=== PATIENT | female | born 1975 | race African-American/Black ===

== ENCOUNTER 2019-12-20 17:27 | Emergency (ER) | payer OTHER, SELFPAY ==
[2019-12-20] VITALS (9 sets, daily range): BP systolic 133–148; BP diastolic 74–86; PULSE 58–70; RESP 18–26; TEMP 36.7; O2SAT 100
--- NOTE | 2019-12-20 17:40 | DI.RAD.S_ITS ---
PROCEDURE: XR CHEST 1V INDICATIONS: Chest pain TECHNIQUE: One view of the chest was acquired. COMPARISON: None. FINDINGS: Surgical changes and devices: None. Lungs and pleura: Lungs are clear. No pleural effusions or pneumothorax. Mediastinum: Mediastinal contours appear normal. Heart size is normal. Bones and chest wall: No suspicious bony lesions. Overlying soft tissues appear unremarkable. IMPRESSION: Normal portable chest. Dictated by: Thor Robertson M.D. on 12/20/2019 at 17:20 Approved by: Thor Robertson M.D. on 12/20/2019 at 17:20
[2019-12-20 18:19] LABS: Add Manual Diff / Slide Review NO; Basophils Absolute Auto 0 /uL (0-100); Basophils Percent Auto 0.4 % (0-2); Eosinophils Absolute Auto 100 /uL (0-450); Eosinophils Percent Auto 1.6 % (2-4); Hematocrit 36.9 % (36-46); Lymphocytes Absolute Auto 2600 /uL (1100-4500); Lymphocytes Percent Auto 32.3 % (25-40); Mean Corpuscular HGB Conc 35.4 % (30-36); Mean Corpuscular Hemoglobin 32.4 PG (26-34); Mean Corpuscular Volume 91.6 fL (80-100); Monocytes Absolute Auto 400 /uL (0-900); Monocytes Percent Auto 5.5 % (3-14); Neutrophils Absolute Auto 4900 /uL (1500-7000); Neutrophils Percent Auto 60.2 % (50-75); Platelet Count 218 X10^3/uL (150-400); Red Blood Cell Count 4.02 X10^6/uL (4.0-5.2); Red Cell Distribution Width 12.4 % (11.6-14.8); White Blood Cell Count 8.1 X10^3/uL (4.5-11.0)
[2019-12-20 18:24] LABS: D Dimer < 200 ng/mL (<230)
[2019-12-20 18:28] LABS: Alanine Aminotransferase 13 IU/L (<35); Albumin 4.3 g/dL (3.5-5.0); Albumin Globulin Ratio 1.3 (1.0-2.8); Alkaline Phosphatase 89 U/L (38-126); Aspartate Aminotransferase 21 IU/L (14-36); BUN Creatinine Ratio 20.5 (6-22); Bilirubin Total 0.4 mg/dL (0.2-1.3); Blood Urea Nitrogen 16 mg/dL (7-17); Carbon Dioxide 32 mmol/L (22-32); Chloride 97 mmol/L (98-107); Estimated Glomerular Filt Rate > 60.0 mL/min (>60); Globulin 3.2 g/dL (1.7-4.1); Glucose 87 mg/dL (70-100); HEMOLYSIS < 15 (0-50); Lipase 118 U/L (23-300); Magnesium 1.9 mg/dL (1.6-2.3); Potassium 3.1 mmol/L (3.4-5.1); Sodium 136 mmol/L (137-145); Total Protein 7.5 g/dL (6.3-8.2)
--- NOTE | 2019-12-20 18:36 | ED.CHESTPAIN ---
HPI - Chest Pain General Chief Complaint: Chest Pain Stated Complaint: chest pain Time Seen by Provider: 12/20/19 17:40 Source: patient Mode of arrival: Ambulatory Limitations: no limitations History of Present Illness HPI narrative: 44-year-old female with a history of hypertension currently on 2 different medications. Stated that she just started the losartan approximately 4 days ago. Only took her Chlorthalidone today. Here for evaluation of left-sided chest pain and also left arm pain. No shortness of breath. States the pain is not worse with palpation or movement. Not worse with breathing. No nausea or vomiting. She states that the left-sided chest discomfort has been off and on for several days if not weeks help. Her current episode has been going on since earlier in the day. She does not know the exact time that the symptoms started however she does state that is been off and on throughout the day. Has not tried anything for the symptoms in the past. She states that she took her blood pressure earlier in the day and it was elevated. She then remembered that she did not take her blood pressure medicines this morning that is why she is only taken 1 of her 2 blood pressure medicines. Related Data Home Medications Medication Instructions Recorded Confirmed butalbital-acetaminophen 2 tab PO Q8HR PRN 12/20/19 12/20/19 chlorthalidone 25 mg PO QAM 12/20/19 12/20/19 losartan 50 mg PO QAM 12/20/19 12/20/19 multivitamin 1 tab PO QAM 12/20/19 12/20/19 omeprazole 20 mg PO QAM 12/20/19 12/20/19 Allergies Allergy/AdvReac Type Severity Reaction Status Date / Time No Known Drug Allergies Allergy Verified 12/20/19 17:37 Review of Systems Constitutional Constitutional: Denies fever(s) and Reports headache(s) ENT Ears, Nose, Mouth, and Throat: Reports headache(s) Cardiovascular Cardiovascular: Reports chest pain, Denies pedal edema, Denies lightheadedness, Denies dyspnea and Denies orthopnea Respiratory Respiratory: Denies dyspnea Gastrointestinal Gastrointestinal: Denies abdominal pain, Denies change in bowel habits, Denies nausea and Denies vomiting Genitourinary Genitourinary: Denies dysuria Genitourinary: Denies dysuria Musculoskeletal Musculoskeletal: Denies arthralgias and Denies myalgias Integumentary/Breasts Skin/Breast: Denies rash Neurologic Neurologic: Denies behavioral changes and Reports headache(s) Psychiatric Psychiatric: Denies behavioral changes Hematologic/Lymphatic Hematologic/Lymphatic: Denies easy bleeding and Denies easy bruising Allergic/Immunologic Allergic/Immunologic: Denies urticaria Patient History Medical History GERD (gastroesophageal reflux disease) (Acute) Hypertension (Acute) Migraine (Acute) Social History Smoking Status: Never smoker Smoking Status: Never smoker alcohol intake frequency: 0-2 drinks per day Substance Use Type: marijuana Exam Initial Vital Signs Initial Vital Signs: Vital Signs Temperature 98.1 F 12/20/19 17:34 Pulse Rate 70 12/20/19 17:34 Respiratory Rate 19 12/20/19 17:34 Blood Pressure 136/74 12/20/19 17:34 Pulse Oximetry 100 12/20/19 17:34 Const General: cooperative and comfortable Limitations: mental status not altered HENMT Head: normal to inspection and normocephalic Resp Effort & Inspection: normal respiratory effort Auscultation: clear to auscultation bilaterally Cardio Rate: regular rate Rhythm: regular rhythm GI Inspection: non-distended Skin Lesions: no lesions Rashes: no rashes Neuro General: patient alert, patient awake and patient oriented x3 Cognition: normal cognition Speech: speech normal Motor: muscle tone normal throughout Sensory Exam: no sensory deficits noted Extrem General: normal to inspection, capillary refill normal and No edema Psych Appearance: grossly normal and well kempt Scores GCS Hector coma scale eye opening: Spontaneous Levi coma scale verbal response: Orientated Hector coma scale motor response: Obey commands Levi coma scale total score: 15 HEART Score Heart Score history: Slightly Suspicious Heart Score EKG: Normal Heart Score Age: < 45 years old Heart Score risk factors: 1-2 risk factors Heart Score troponin: < or = to normal limit Heart Score Total: 1 Course Orders Ordered: ED Orders 12/20/19 17:38 EKG-12 Lead Stat 12/20/19 17:40 XR chest 1V Stat 12/20/19 18:00 Complete Blood Count AUTO DIFF Stat Comprehensive Metabolic Panel Stat D Dimer Stat Lipase Stat Magnesium Stat NT-proBNP (BNP-Adult 18+) Stat Thyroid Stimulating Hormone Stat Troponin I Stat 12/20/19 20:03 Troponin I Stat Discontinued Medications Aspirin (Aspirin Chew) 324 mg PO NOW ONE Stop: 12/20/19 17:41 Last Admin: 12/20/19 18:48 Dose: 324 mg Documented by: ADELINA Vital Signs Vital signs: Vital Signs - 8 hr 12/20/19 17:55 12/20/19 17:56 12/20/19 18:00 Pulse Rate 68 65 64 Respiratory Rate 23 18 Blood Pressure 133/77 140/83 Pulse Oximetry 100 100 100 12/20/19 18:30 12/20/19 19:00 12/20/19 19:30 Pulse Rate 63 60 58 L Respiratory Rate 23 26 H 19 Blood Pressure 146/77 H 146/82 H 143/83 H Pulse Oximetry 100 12/20/19 20:00 12/20/19 20:30 Pulse Rate 61 60 Respiratory Rate 21 20 Blood Pressure 148/86 H 146/83 H Pulse Oximetry MDM - Chest Pain Lab Data Attestation: I reviewed the patient's lab results. Result diagrams: 12/20/19 18:00 12/20/19 18:00 Labs: Lab Results 12/20/19 12/20/19 12/20/19 Range/Units 18:00 18:00 18:00 WBC 8.1 (4.5-11.0) X10^3/uL RBC 4.02 (4.0-5.2) X10^6/uL Hgb 13.0 (12.0-16.0) g/dL Hct 36.9 (36-46) % MCV 91.6 (80-100) fL MCH 32.4 (26-34) PG MCHC 35.4 (30-36) % RDW 12.4 (11.6-14.8) % Plt Count 218 (150-400) X10^3/uL Neut % (Auto) 60.2 (50-75) % Lymph % (Auto) 32.3 (25-40) % Morrill % (Auto) 5.5 (3-14) % Eos % (Auto) 1.6 L (2-4) % Baso % (Auto) 0.4 (0-2) % Neut # (Auto) 4900 (6455-0706) /uL Lymph # (Auto) 2600 (6571-4023) /uL Morrill # (Auto) 400 (0-900) /uL Eos # (Auto) 100 (0-450) /uL Baso # (Auto) 0 (0-100) /uL D-Dimer < 200 (<230) ng/mL Sodium 136 L (137-145) mmol/L Potassium 3.1 L (3.4-5.1) mmol/L Chloride 97 L (98-107) mmol/L Carbon Dioxide 32 (22-32) mmol/L BUN 16 (7-17) mg/dL Creatinine 0.78 (0.52-1.04) mg/dL Estimated GFR > 60.0 (>60) mL/min BUN/Creatinine Ratio 20.5 (6-22) Glucose 87 (70-100) mg/dL Calcium 9.0 (8.4-10.2) mg/dL Magnesium 1.9 (1.6-2.3) mg/dL Total Bilirubin 0.4 (0.2-1.3) mg/dL AST 21 (14-36) IU/L ALT 13 (<35) IU/L Alkaline Phosphatase 89 (38-126) U/L Troponin I < 0.012 (0.01-0.034) ng/mL NT-Pro-B Natriuret Pep 11 (<125) pg/mL Total Protein 7.5 (6.3-8.2) g/dL Albumin 4.3 (3.5-5.0) g/dL Globulin 3.2 (1.7-4.1) g/dL Albumin/Globulin Ratio 1.3 (1.0-2.8) Lipase 118 (23-300) U/L TSH (0.47-4.68) uIU/mL 12/20/19 12/20/19 Range/Units 18:00 20:03 WBC (4.5-11.0) X10^3/uL RBC (4.0-5.2) X10^6/uL Hgb (12.0-16.0) g/dL Hct (36-46) % MCV (80-100) fL MCH (26-34) PG MCHC (30-36) % RDW (11.6-14.8) % Plt Count (150-400) X10^3/uL Neut % (Auto) (50-75) % Lymph % (Auto) (25-40) % Morrill % (Auto) (3-14) % Eos % (Auto) (2-4) % Baso % (Auto) (0-2) % Neut # (Auto) (5132-3995) /uL Lymph # (Auto) (6207-5681) /uL Morrill # (Auto) (0-900) /uL Eos # (Auto) (0-450) /uL Baso # (Auto) (0-100) /uL D-Dimer (<230) ng/mL Sodium (137-145) mmol/L Potassium (3.4-5.1) mmol/L Chloride (98-107) mmol/L Carbon Dioxide (22-32) mmol/L BUN (7-17) mg/dL Creatinine (0.52-1.04) mg/dL Estimated GFR (>60) mL/min BUN/Creatinine Ratio (6-22) Glucose (70-100) mg/dL Calcium (8.4-10.2) mg/dL Magnesium (1.6-2.3) mg/dL Total Bilirubin (0.2-1.3) mg/dL AST (14-36) IU/L ALT (<35) IU/L Alkaline Phosphatase (38-126) U/L Troponin I < 0.012 (0.01-0.034) ng/mL NT-Pro-B Natriuret Pep (<125) pg/mL Total Protein (6.3-8.2) g/dL Albumin (3.5-5.0) g/dL Globulin (1.7-4.1) g/dL Albumin/Globulin Ratio (1.0-2.8) Lipase (23-300) U/L TSH 4.10 (0.47-4.68) uIU/mL Imaging Data Chest x-ray: Radiologist's Impression: [address] [address] XRay Report Signed Patient: Betty Crowley [facility]#: [id number] : 1975Acct:[id number] Age/Sex: 44 / FDate of Service: 12/20/19 Loc: ED Accession Number: [id number] Procedure: XR chest 1V Ordering Provider: Ivana Hopson MD PROCEDURE: XR CHEST 1V INDICATIONS: Chest pain TECHNIQUE: One view of the chest was acquired. COMPARISON: None. FINDINGS: Surgical changes and devices: None. Lungs and pleura: Lungs are clear. No pleural effusions or pneumothorax. Mediastinum: Mediastinal contours appear normal. Heart size is normal. Bones and chest wall: No suspicious bony lesions. Overlying soft tissues appear unremarkable. IMPRESSION: Normal portable chest. Dictated by: Thor Robertson M.D. on 12/20/2019 at 17:20 Approved by: Thor Robertson M.D. on 12/20/2019 at 17:20 ECG Data Attestation: I personally reviewed and interpreted this ECG as follows: Prior ECG tracings: not available for review Interpretation: Sinus rhythm Ventricular rate is 62 Normal axis Normal QRS Normal QTC No ST T wave changes MDM Narrative Medical decision making narrative: EKG is unremarkable, troponins negative x2 with the 2nd being greater than 6 hours of the onset of her symptoms. Has a low risk heart score. Was hypertensive during her stay but it did improve without intervention. Had a long discussion with her regarding her blood pressure now she should be taking and at home and how she should be taking her medicines. Informed her that she should be talking with her primary doctor about potentially changing any medications. We did discuss her chest discomfort. I do feel that she was low risk for coronary artery disease however will have her follow-up with her primary doctor for further evaluation and treatment. She was given strict return precautions. She expressed understanding and agreement. Discharge Plan Departure Patient Disposition: Home Clinical Impression: Atypical chest pain Hypertension Qualifiers: Hypertension type: unspecified Qualified Code(s): I10 - Essential (primary) hypertension Discharge Date/Time: 12/20/19 21:02 Instructions: Essential Hypertension, DI for Atypical Chest Pain Activity Restrictions/Additional Instructions: Recommend you take the medications like we discussed and also take your blood pressure at home like we discussed. Also recommend you contact your primary provider for a follow-up. Return to the emergency department for any new or worsening symptoms Prescriptions: No Action multivitamin Tablet 1 tab PO QAM RF: 0 losartan 50 mg Tablet 50 mg PO QAM RF: 0 butalbital-acetaminophen 50-325 mg Tablet 2 tab PO Q8HR PRN (Reason: Migraine Headache) RF: 0 chlorthalidone 25 mg Tablet 25 mg PO QAM RF: 0 omeprazole 20 mg Tablet,Delayed Release (Dr/Ec) 20 mg PO QAM RF: 0
[2019-12-20 18:39] LABS: NT-proBNP (BNP-Adult 18+) 11 pg/mL (<125); Troponin I < 0.012 ng/mL (0.01-0.034)
[2019-12-20] MEDS: ASPIRIN 81 MG CHEW TAB 324 MG PO (18:48)
--- NOTE | 2019-12-20 20:06 | PC.NURSE ---
blood specimen drawn from left ac IV. labeled and sent to lab
[2019-12-20 20:30] LABS: Troponin I < 0.012 ng/mL (0.01-0.034)
== END 2019-12-20 21:02 | disposition home or self-care (01) ==
PROVIDERS: Emergency Medicine; Emergency Provider Emergency Medicine
DX: R07.89 Other chest pain (principal); I10 Essential (primary) hypertension; M79.602 Pain in left arm
CPT/HCPCS: 36415; 71045; 80053; 83690; 83735; 83880; 84443; 84484; 85025; 85379; 93005; 93010; 99284

== ENCOUNTER 2020-05-24 13:04 | Emergency (ER) | payer OTHER, SELFPAY ==
[2020-05-24] VITALS (8 sets, daily range): BP systolic 141–177; BP diastolic 78–100; PULSE 59–67; RESP 17; TEMP 37.1; O2SAT 100; BMI 32.7
--- NOTE | 2020-05-24 14:03 | DI.CT.S_ITS ---
PROCEDURE: CT HEAD/BRAIN WO CON INDICATIONS: worsening R sided migraine TECHNIQUE: Noncontrast 4.5 mm thick angled axial sections acquired from the foramen magnum to the vertex, with coronal and sagittal reformats. For radiation dose reduction, the following was used: automated exposure control, adjustment of mA and/or kV according to patient size. COMPARISON: None. FINDINGS: Image quality: Excellent. CSF spaces: Basal cisterns are patent. No extra-axial fluid collections. Ventricles are normal in size and shape. Brain: No midline shift. No intracranial masses or hemorrhage. Smith-white matter interface is normal. Skull and face: Calvarium and visualized facial bones are intact, without suspicious lesions. Sinuses: Visualized sinuses and mastoids are clear. IMPRESSION: No source of headache is found, no sign of hemorrhage or mass, or ventriculomegaly. Dictated by: Fredrick Berman M.D. on 05/24/2020 at 15:03 Approved by: Fredrick Berman M.D. on 05/24/2020 at 15:03
--- NOTE | 2020-05-24 14:04 | DI.RAD.S_ITS ---
PROCEDURE: XR CHEST 1V INDICATIONS: worsening R sided migraine TECHNIQUE: One view of the chest was acquired. COMPARISON: [facility], CR, XR CHEST 1V, 12/20/2019, 18:00. FINDINGS: Surgical changes and devices: None. Lungs and pleura: Lungs are clear. No pleural effusions or pneumothorax. Mediastinum: Mediastinal contours appear normal. Heart size is normal. Bones and chest wall: No suspicious bony lesions. Overlying soft tissues appear unremarkable. IMPRESSION: Normal for age, source of current pain symptoms is not seen. Dictated by: Fredrick Berman M.D. on 05/24/2020 at 15:03 Approved by: Fredrick Berman M.D. on 05/24/2020 at 15:04
--- NOTE | 2020-05-24 14:13 | ED.HA ---
HPI - Headache <CLARISSA Villalba - Last Filed: 05/24/20 16:44> General Chief Complaint: Headache Stated Complaint: Vaccine Thursday, Head Pain, Blurred Vision, Ear Rin Time Seen by Provider: 05/24/20 13:42 Mode of arrival: Ambulatory History of Present Illness HPI Narrative: 44yo female with a history of HTN and migraines, presents to the ED for a worse migraine. She states she had the 1st COVID vaccine on Thursday about 5 days ago. Patient states the day after she had a vaccine she developed a right-sided migraine, she sees spots which she states black worms in her right eye which is fairly common of her migraines. Patient states she has a dull aching pain approximately 7/10, with intermittent stabbing pain. She states it was worse when she bent down to tie her shoes. Patient states yesterday after work she developed some chest tightness, she states that lasted a few hours and she went to bed. She does not have any chest tightness or pain at this time. Patient denies any fevers, chills, nausea, vomiting, dizziness, syncope, or any other concerns. She also reports some intermittent constipation, she did have 1 bowel movement but states that she still feels constipated. Patient states she does not take any medication as she has not seen a provider to refill it. Related Data Home Medications Medication Instructions Recorded Confirmed butalbital-acetaminophen 2 tab PO Q8HR PRN 12/20/19 12/20/19 chlorthalidone 25 mg PO QAM 12/20/19 12/20/19 losartan 50 mg PO QAM 12/20/19 12/20/19 multivitamin 1 tab PO QAM 12/20/19 12/20/19 omeprazole 20 mg PO QAM 12/20/19 12/20/19 Previous Rx's Medication Instructions Recorded metoclopramide HCl [Reglan] 10 mg PO Q6H PRN #10 tab 05/24/20 Allergies Allergy/AdvReac Type Severity Reaction Status Date / Time No Known Drug Allergies Allergy Verified 05/24/20 13:57 Review of Systems <CLARISSA Villalba - Last Filed: 05/24/20 16:44> Review of Systems Narrative: REVIEW OF SYSTEMS: GENERAL: Denies fever or chills. HENT: No head trauma. Reports headache, see HPI. CARDIOVASCULAR: Patient reports having an episode of chest pain yesterday, see HPI. RESPIRATORY: No shortness of breath or cough. GASTROINTESTINAL: No nausea or vomiting. GENITOURINARY: No flank pain. MUSCULOSKELETAL: No pain or weakness. INTEGUMENTARY: No rash. NEURO: No numbness or tingling. PSYCH: No behavior or mood changes. Patient History <CLARISSA Villalba - Last Filed: 05/24/20 16:44> Medical History GERD (gastroesophageal reflux disease) Hypertension Migraine Social History Smoking Status: Never smoker Smoking Status: Never smoker alcohol intake frequency: other Substance Use Type: does not use Exam <CLARISSA Villalba - Last Filed: 05/24/20 16:44> Initial Vital Signs Initial Vital Signs: Vital Signs Pulse Rate 62 05/24/20 13:44 Pulse Oximetry 100 05/24/20 13:44 PHYSICAL EXAMINATION: GENERAL: Awake and alert. HENT: Normocephalic, atraumatic. EYES: PERRLA, EMOIs, Conjunctiva pink, sclera white, no periorbital swelling. CHEST: Normal to inspection and without deformities. CARDIOVASCULAR: S1 and S2 sounds normal. Regular rate and rhythm, no murmurs, clicks, or bruits. No pedal edema. RESPIRATORY: Normal respiratory rate, trachea midline, airway patent. No stridor, nasal flaring or accessory muscle use. Lungs are clear in all cannon without wheeze, rhonchi, or crackles. GASTROINTESTINAL: Bowel sounds normoactive. Abdomen is soft and non-tender. No organomegaly. MUSCULOSKELETAL: Normal gait and coordination. Equal tone and mass bilaterally. EXTREMITIES: CMS intact. Moves all extremities. SKIN: Warm, dry, soft, appropriate color for ethnicity. No lesions, rashes, or wounds. NEURO: Alert and Oriented X 3. Good coordination. No ataxia, or sensory deficits, or cognitive issues. PHYSICAL EXAMINATION: GENERAL: Well groomed, alert, and cooperative. Answers questions promptly and appropriately. Vital signs noted. HENT: Normocephalic. Ear canals patent. Oral mucosa is pink and moist. EYES: PERRLA, EOMIs, conjunctiva pink, sclera white, no periorbital swelling. NECK: Full ROM, no midline or spinal tenderness. CARDIOVASCULAR: S1 and S2 sounds normal. Regular rate and rhythm, no murmurs, clicks, or bruits. RESPIRATORY: Normal respiratory rate, trachea midline, airway patent. No stridor, nasal flaring or accessory muscle use. Lungs are clear in all cannon without wheeze, rhonchi, or crackles. MUSCULOSKELETAL: Normal gait and coordination. Equal tone and mass bilaterally. Equal strength bilaterally to upper and lower extremities. No spinal tenderness. EXTREMITIES: CMS intact. Moves all extremities. SKIN: Warm, dry, soft, appropriate color for ethnicity. No lesions, rashes, or wounds to visualized areas. NEURO: Alert and Oriented X 3. GCS: 15. Good coordination. No ataxia, or sensory deficits, or cognitive issues. Cranial Nerves: II: Visual cannon grossly intact. III & IV & : EOMIs V: Able to open and close jaw. VII: Facial movements symetrical. Able to close eyelids tightly. VIII: Hearing grossly intact, adequate balance. X: Uvula pronation intact. XI: Patient is able to shrug shoulders. XII: Patient is able to stick out tongue and move it side to side. PSYCH: Appropriate affect and mood. PSYCH: Appropriate affect and mood. <Lilia Espino DO - Last Filed: 05/25/20 08:05> Initial Vital Signs Initial Vital Signs: Vital Signs Pulse Rate 62 05/24/20 13:44 Pulse Oximetry 100 05/24/20 13:44 Course <CLARISSA Villalba - Last Filed: 05/24/20 16:44> Course Course Narrative: Approximately an hour post medication administration, patient states her headache completely resolved. She is feeling better and like to go home. Orders Ordered: Discontinued Medications Diphenhydramine HCl (Diphenhydramine 50 Mg/Ml Vial) 25 mg IV NOW ONE Stop: 05/24/20 14:04 Last Admin: 05/24/20 14:52 Dose: 25 mg Documented by: JUANY Sodium Chloride (Normal Saline 0.9%) 1,000 mls @ 1,000 mls/hr IV BOLUS ONE Stop: 05/24/20 15:02 Last Infusion: 05/24/20 16:29 Dose: 0 mls/hr Documented by: Admin: 05/24/20 14:51 Dose: 1,000 mls/hr Documented by: JUANY Ketorolac Tromethamine (Ketorolac 60 Mg/2 Ml Vial) 30 mg IV NOW ONE Stop: 05/24/20 14:04 Last Admin: 05/24/20 14:52 Dose: 30 mg Documented by: JUANY Metoclopramide HCl (Metoclopramide 10 Mg/2 Ml Inj) 10 mg IV NOW ONE Stop: 05/24/20 14:04 Last Admin: 05/24/20 14:52 Dose: 10 mg Documented by: JUANY Consultations Consultation #1: Patient staffed with Dr. Espino, discussed test, test results, plan of care. Vital Signs Vital signs: Vital Signs - 8 hr 05/24/20 13:44 05/24/20 13:52 05/24/20 14:00 Temperature 98.7 F Pulse Rate 62 67 63 Respiratory Rate 17 Blood Pressure 161/100 H 177/89 H Pulse Oximetry 100 100 100 05/24/20 14:30 05/24/20 15:00 05/24/20 15:22 Temperature Pulse Rate 65 59 L 60 Respiratory Rate Blood Pressure 142/78 H Pulse Oximetry 100 100 100 05/24/20 15:30 05/24/20 16:00 Temperature Pulse Rate 59 L 60 Respiratory Rate Blood Pressure 141/80 H 149/81 H Pulse Oximetry 100 100 <Lilia Espino, DO - Last Filed: 05/25/20 08:05> Orders Ordered: Discontinued Medications Diphenhydramine HCl (Diphenhydramine 50 Mg/Ml Vial) 25 mg IV NOW ONE Stop: 05/24/20 14:04 Last Admin: 05/24/20 14:52 Dose: 25 mg Documented by: JUANY Sodium Chloride (Normal Saline 0.9%) 1,000 mls @ 1,000 mls/hr IV BOLUS ONE Stop: 05/24/20 15:02 Last Infusion: 05/24/20 16:29 Dose: 0 mls/hr Documented by: Admin: 05/24/20 14:51 Dose: 1,000 mls/hr Documented by: JUANY Ketorolac Tromethamine (Ketorolac 60 Mg/2 Ml Vial) 30 mg IV NOW ONE Stop: 05/24/20 14:04 Last Admin: 05/24/20 14:52 Dose: 30 mg Documented by: JUANY Metoclopramide HCl (Metoclopramide 10 Mg/2 Ml Inj) 10 mg IV NOW ONE Stop: 05/24/20 14:04 Last Admin: 05/24/20 14:52 Dose: 10 mg Documented by: JUANY Vital Signs Vital signs: Vital Signs - 8 hr 05/24/20 13:44 05/24/20 13:52 05/24/20 14:00 Temperature 98.7 F Pulse Rate 62 67 63 Respiratory Rate 17 Blood Pressure 161/100 H 177/89 H Pulse Oximetry 100 100 100 05/24/20 14:30 05/24/20 15:00 05/24/20 15:22 Temperature Pulse Rate 65 59 L 60 Respiratory Rate Blood Pressure 142/78 H Pulse Oximetry 100 100 100 05/24/20 15:30 05/24/20 16:00 Temperature Pulse Rate 59 L 60 Respiratory Rate Blood Pressure 141/80 H 149/81 H Pulse Oximetry 100 100 MDM - Headache <CLARISSA Villlaba - Last Filed: 05/24/20 16:44> Medical Records Attestation: I reviewed the patient's medical records. Lab Data Attestation: I reviewed the patient's lab results. Result diagrams: 05/24/20 14:43 05/24/20 14:43 Labs: Lab Results 05/24/20 05/24/20 Range/Units 14:43 14:43 WBC 6.8 (4.5-11.0) X10^3/uL RBC 4.09 (4.0-5.2) X10^6/uL Hgb 13.0 (12.0-16.0) g/dL Hct 37.7 (36-46) % MCV 92.2 (80-100) fL MCH 31.8 (26-34) PG MCHC 34.5 (30-36) % RDW 12.2 (11.6-14.8) % Plt Count 222 (150-400) X10^3/uL Neut % (Auto) 67.3 (50-75) % Lymph % (Auto) 27.6 (25-40) % [place] % (Auto) 2.9 L (3-14) % Eos % (Auto) 2.0 (2-4) % Baso % (Auto) 0.2 (0-2) % Neut # (Auto) 4600 (8423-6233) /uL Lymph # (Auto) 1900 (1028-3328) /uL [place] # (Auto) 200 (0-900) /uL Eos # (Auto) 100 (0-450) /uL Baso # (Auto) 0 (0-100) /uL Sodium 135 L (137-145) mmol/L Potassium 3.4 (3.4-5.1) mmol/L Chloride 101 (98-107) mmol/L Carbon Dioxide 31 (22-32) mmol/L BUN 15 (7-17) mg/dL Creatinine 1.35 H (0.52-1.04) mg/dL Estimated GFR 42.6 L (>60) mL/min BUN/Creatinine Ratio 11.1 (6-22) Glucose 102 H (70-100) mg/dL Calcium 8.9 (8.4-10.2) mg/dL Total Bilirubin 0.4 (0.2-1.3) mg/dL AST 21 (14-36) IU/L ALT 14 (<35) IU/L Alkaline Phosphatase 90 (38-126) U/L Total Creatine Kinase 77 (30-135) U/L CK-MB (CK-2) TNP CK-MB (CK-2) Rel Index TNP Troponin I < 0.012 (0.01-0.034) ng/mL Total Protein 7.0 (6.3-8.2) g/dL Albumin 4.0 (3.5-5.0) g/dL Globulin 3.0 (1.7-4.1) g/dL Albumin/Globulin Ratio 1.3 (1.0-2.8) Lipase 157 (23-300) U/L Imaging Data CT scan - head: Radiologist's Impression: [address] [id number] Scan ReportSigned Patient: Betty Crowley DMR#: [id number]: 1975Acct:[id number]/Sex: 44 / FDate of Service: 05/24/20Loc: EDAccession Number: [id number] Procedure: CT head/brain wo con Ordering Provider: Jailyn Evans PROCEDURE: CT HEAD/BRAIN WO CON INDICATIONS: worsening R sided migraine TECHNIQUE: Noncontrast 4.5 mm thick angled axial sections acquired from the foramen magnum to the vertex, with coronal and sagittal reformats. For radiation dose reduction, the following was used: automated exposure control, adjustment of mA and/or kV according to patient size. COMPARISON: None. FINDINGS: Image quality: Excellent. CSF spaces: Basal cisterns are patent. No extra-axial fluid collections. Ventricles are normal in size and shape. Brain: No midline shift. No intracranial masses or hemorrhage. Smith-white matter interface is normal. Skull and face: Calvarium and visualized facial bones are intact, without suspicious lesions. Sinuses: Visualized sinuses and mastoids are clear. IMPRESSION: No source of headache is found, no sign of hemorrhage or mass, or ventriculomegaly. Dictated by: Fredrick Berman M.D. on 05/24/2020 at 15:03 Approved by: Fredrick Berman M.D. on 05/24/2020 at 15:03 Chest x-ray: Radiologist's Impression: [address] [id number] ReportSigned Patient: Betty Crowley [facility]#: [id number]: 1975Acct:[id number]/Sex: 44 / FDate of Service: 05/24/20Loc: EDAccession Number: [id number] Procedure: XR chest 1V Ordering Provider: Jailyn Evans PROCEDURE: XR CHEST 1V INDICATIONS: worsening R sided migraine TECHNIQUE: One view of the chest was acquired. COMPARISON: [facility] , XR CHEST 1V, 12/20/2019, 18:00. FINDINGS: Surgical changes and devices: None. Lungs and pleura: Lungs are clear. No pleural effusions or pneumothorax. Mediastinum: Mediastinal contours appear normal. Heart size is normal. Bones and chest wall: No suspicious bony lesions. Overlying soft tissues appear unremarkable. IMPRESSION: Normal for age, source of current pain symptoms is not seen. Dictated by: Fredrick Berman M.D. on 05/24/2020 at 15:03 Approved by: Fredrick Berman M.D. on 05/24/2020 at 15:04 ECG Data Interpretation: 1502: Sinus rhythm, normal EKG, rate 60, NC interval 156, QTC 417. No ST elevation or ST depression. No T-wave inversion. EKG also viewed by Dr. Espino. [facility] Narrative Medical decision making narrative: 44-year-old female with a history of hypertension (not compliant with medication) and history of migraines, presents to the emergency department for a multiple symptoms. I suspect she has actually had a migraine, she has a history of migraines and there acting very similar but have lasted longer in the pain is worse. I suspect this may be triggered by her recent vaccination which can cause headaches. Pain was completely relieved with medications. Less concern for intracranial etiology given relief of pain with medications as well as negative head CT. Patient did have an episode of chest pain, a do not suspect that this is ACS as it has completely resolved yesterday, EKG is within normal limits, troponin and chest x-ray are negative. Less concern for infection given normal labs and lack of other symptoms such as fever. Patient does have worsening renal function. I suspect this most likely related to her on a treated hypertension, she states she has not taken any high blood pressure medication in the past few months. Patient does not appear acutely Ill, she is hemodynamically stable, neuro exam intact. She was highly encouraged to follow up with her PCP in the next 1-2 weeks for further evaluation. ED/Return precautions given for new or worsening symptoms. <Lilia Espino, - Last Filed: 05/25/20 08:05> Lab Data Labs: Lab Results 05/24/20 05/24/20 Range/Units 14:43 14:43 WBC 6.8 (4.5-11.0) X10^3/uL RBC 4.09 (4.0-5.2) X10^6/uL Hgb 13.0 (12.0-16.0) g/dL Hct 37.7 (36-46) % MCV 92.2 (80-100) fL MCH 31.8 (26-34) PG MCHC 34.5 (30-36) % RDW 12.2 (11.6-14.8) % Plt Count 222 (150-400) X10^3/uL Neut % (Auto) 67.3 (50-75) % Lymph % (Auto) 27.6 (25-40) % [place] % (Auto) 2.9 L (3-14) % Eos % (Auto) 2.0 (2-4) % Baso % (Auto) 0.2 (0-2) % Neut # (Auto) 4600 (6477-4661) /uL Lymph # (Auto) 1900 (9189-1482) /uL [place] # (Auto) 200 (0-900) /uL Eos # (Auto) 100 (0-450) /uL Baso # (Auto) 0 (0-100) /uL Sodium 135 L (137-145) mmol/L Potassium 3.4 (3.4-5.1) mmol/L Chloride 101 (98-107) mmol/L Carbon Dioxide 31 (22-32) mmol/L BUN 15 (7-17) mg/dL Creatinine 1.35 H (0.52-1.04) mg/dL Estimated GFR 42.6 L (>60) mL/min BUN/Creatinine Ratio 11.1 (6-22) Glucose 102 H (70-100) mg/dL Calcium 8.9 (8.4-10.2) mg/dL Total Bilirubin 0.4 (0.2-1.3) mg/dL AST 21 (14-36) IU/L ALT 14 (<35) IU/L Alkaline Phosphatase 90 (38-126) U/L Total Creatine Kinase 77 (30-135) U/L CK-MB (CK-2) TNP CK-MB (CK-2) Rel Index TNP Troponin I < 0.012 (0.01-0.034) ng/mL Total Protein 7.0 (6.3-8.2) g/dL Albumin 4.0 (3.5-5.0) g/dL Globulin 3.0 (1.7-4.1) g/dL Albumin/Globulin Ratio 1.3 (1.0-2.8) Lipase 157 (23-300) U/L Discharge Plan Departure Patient Disposition: Home Clinical Impression: Headache Qualifiers: Headache type: unspecified Headache chronicity pattern: acute headache Intractability: not intractable Qualified Code(s): R51.9 - Headache, unspecified Renal failure Qualifiers: Renal failure chronicity: acute Acute renal failure type: unspecified Qualified Code(s): N17.9 - Acute kidney failure, unspecified Instructions: Hypertension (Alternative Therapy), DI for Kidney Failure, DI for Headache Activity Restrictions/Additional Instructions: Thank you for entrusting me with your care today. As discussed, your head CT and chest x-ray are within normal limits. Your laboratory work shows declining kidney function, this is most likely related to untreated high blood pressure. I suspect your headache was most likely a bad migraine, this can be triggered by a vaccine. However, it is still safe to get the 2nd vaccine. Just be prepared that you might developed headache again. I have given you a prescription for metoclopramide 10mg, take this medication along with 1000mg of acetaminophen and 25 mg of Benadryl this evening if you still have headache. Please call your primary care provider today or tomorrow to schedule a follow-up appointment. Tell them you were seen in the emergency department, discuss that you need to be evaluated for high blood pressure in kidney failure/injury. Return emergency department for any new or worsening symptoms especially severe pain, chest pain, vomiting, or any other concerns. Prescriptions: New metoclopramide HCl [Reglan] 10 mg tablet 10 mg PO Q6H PRN (Reason: nausea and vomiting) Qty: 10 RF: 0 No Action multivitamin Tablet 1 tab PO QAM RF: 0 losartan 50 mg Tablet 50 mg PO QAM RF: 0 butalbital-acetaminophen 50-325 mg Tablet 2 tab PO Q8HR PRN (Reason: Migraine Headache) RF: 0 chlorthalidone 25 mg Tablet 25 mg PO QAM RF: 0 omeprazole 20 mg Tablet,Delayed Release (Dr/Ec) 20 mg PO QAM RF: 0 <Lilia Espino, - Last Filed: 05/25/20 08:05> [facility] Attestation: I was immediately available in the department for consultation. Documentation has been reviewed. I agree with assessment and plan.
[2020-05-24 14:51] LABS: Add Manual Diff / Slide Review NO; Basophils Absolute Auto 0 /uL (0-100); Basophils Percent Auto 0.2 % (0-2); Eosinophils Absolute Auto 100 /uL (0-450); Hematocrit 37.7 % (36-46); Lymphocytes Absolute Auto 1900 /uL (1100-4500); Lymphocytes Percent Auto 27.6 % (25-40); Mean Corpuscular HGB Conc 34.5 % (30-36); Mean Corpuscular Hemoglobin 31.8 PG (26-34); Mean Corpuscular Volume 92.2 fL (80-100); Monocytes Absolute Auto 200 /uL (0-900); Monocytes Percent Auto 2.9 % (3-14); Neutrophils Absolute Auto 4600 /uL (1500-7000); Neutrophils Percent Auto 67.3 % (50-75); Platelet Count 222 X10^3/uL (150-400); Red Blood Cell Count 4.09 X10^6/uL (4.0-5.2); Red Cell Distribution Width 12.2 % (11.6-14.8); White Blood Cell Count 6.8 X10^3/uL (4.5-11.0)
[2020-05-24] MEDS: SODIUM CHLORIDE 0.9% 1,000 ML 1000 ML IV (14:51)
[2020-05-24] MEDS: METOCLOPRAMIDE 10 MG/2 ML INJ IV (14:52)
[2020-05-24] MEDS: KETOROLAC 60 MG/2 ML VIAL 30 MG IV (14:52)
[2020-05-24] MEDS: diphenhydrAMINE 50 MG/ML VIAL 25 MG IV (14:52)
[2020-05-24 15:03] LABS: Alanine Aminotransferase 14 IU/L (<35); Albumin Globulin Ratio 1.3 (1.0-2.8); Alkaline Phosphatase 90 U/L (38-126); Aspartate Aminotransferase 21 IU/L (14-36); BUN Creatinine Ratio 11.1 (6-22); Bilirubin Total 0.4 mg/dL (0.2-1.3); Blood Urea Nitrogen 15 mg/dL (7-17); Calcium 8.9 mg/dL (8.4-10.2); Carbon Dioxide 31 mmol/L (22-32); Chloride 101 mmol/L (98-107); Creatine Kinase 77 U/L (30-135); Estimated Glomerular Filt Rate 42.6 mL/min (>60); Glucose 102 mg/dL (70-100); HEMOLYSIS < 15 (0-50); Lipase 157 U/L (23-300); Potassium 3.4 mmol/L (3.4-5.1); Sodium 135 mmol/L (137-145)
[2020-05-24 15:15] LABS: Troponin I < 0.012 ng/mL (0.01-0.034)
--- NOTE | 2020-05-24 15:23 | PC.NURSE ---
Patient reports had covid vaccine on thursday last week. Pain in right arm travelled up into right neck and head with ringing in right ear starting on thursday and pain in right eye with blurred vision/worms in vision. Has known history of ocular migraines.
== END 2020-05-24 16:36 | disposition home or self-care (01) ==
PROVIDERS: Emergency Provider Nurse Practitioner
DX: R51.9 Headache, unspecified (principal); T50.Z95A Adverse effect of other vaccines and biological substances, initial encounter; N17.9 Acute kidney failure, unspecified; I10 Essential (primary) hypertension; R07.9 Chest pain, unspecified; H53.8 Other visual disturbances
CPT/HCPCS: 36415; 70450; 71045; 80053; 82550; 83690; 84484; 85025; 93005; 93010; 96361; 96374; 96375; 99284; J1200; J1885; J2765

== ENCOUNTER 2021-04-01 10:56 | Emergency (ER) | payer OTHER, SELFPAY ==
[2021-04-01] VITALS (14 sets, daily range): BP systolic 152–176; BP diastolic 86–99; PULSE 56–72; RESP 15–28; TEMP 36.7; O2SAT 99–100; BMI 40.3
--- NOTE | 2021-04-01 11:14 | DI.RAD.S_ITS ---
PROCEDURE: XR CHEST 1V INDICATIONS: chest pain TECHNIQUE: One view of the chest was acquired. COMPARISON: [facility], CR, XR CHEST 1V, 12/20/2019, 18:00. [facility], CR, XR CHEST 1V, 05/24/2020, 14:09. FINDINGS: Surgical changes and devices: None. Lungs and pleura: Lungs are clear. No pleural effusions or pneumothorax. Mediastinum: Mediastinal contours appear normal. Heart size is normal. Bones and chest wall: No suspicious bony lesions. Overlying soft tissues appear unremarkable. IMPRESSION: No acute cardiopulmonary disease. Dictated by: Enoc Trivedi M.D. on 04/01/2021 at 11:32 Approved by: Enoc Trivedi M.D. on 04/01/2021 at 11:33
[2021-04-01 11:40] LABS: Add Manual Diff / Slide Review NO; Basophils Absolute Auto 0 /uL (0-100); Basophils Percent Auto 0.3 % (0-2); Eosinophils Absolute Auto 100 /uL (0-450); Eosinophils Percent Auto 0.8 % (2-4); Hematocrit 39.9 % (36-46); Hemoglobin 13.3 g/dL (12.0-16.0); Lymphocytes Absolute Auto 2800 /uL (1100-4500); Mean Corpuscular HGB Conc 33.4 % (30-36); Mean Corpuscular Hemoglobin 30.7 PG (26-34); Mean Corpuscular Volume 92.1 fL (80-100); Monocytes Absolute Auto 400 /uL (0-900); Monocytes Percent Auto 3.9 % (3-14); Neutrophils Absolute Auto 5800 /uL (1500-7000); Platelet Count 253 X10^3/uL (150-400); Red Blood Cell Count 4.33 X10^6/uL (4.0-5.2); Red Cell Distribution Width 12.7 % (11.6-14.8); White Blood Cell Count 9.1 X10^3/uL (4.5-11.0)
[2021-04-01 11:48] LABS: COVID19 -Nasal RAPID Negative (Negative)
--- NOTE | 2021-04-01 11:52 | ED.CHESTPAIN ---
HPI - Chest Pain General Chief Complaint: Chest Pain Stated Complaint: ABD & Chest pain Time Seen by Provider: 04/01/21 11:14 History of Present Illness HPI narrative: Patient is a 45-year-old female who with history of hypertension and migraine presenting with multiple complaints today. She states that she developed a migraine around the 18 of March she said a few days after that she developed some intermittent dull chest discomfort which mostly woke her at night. She said she was able to exercise during the day and ambulate without any difficulty. However yesterday she noticed that she was more short of breath going upstairs than she had been previously. She now has worsening chest discomfort but still a dull ache it radiates now to the back and left arm which she describes as left arm tingling mostly in her triceps. Currently having a mild dull ache now. No known history of coronary artery disease. She also has been having ongoing left lower quadrant pain. She has had very loose frequent bowel movements. No nausea vomiting fevers. She does have a history of an ovarian cyst. Her headache today is different than previous headaches she states that it is more the left side it is not going away. No visual changes. She usually takes her home medication and it helped however does not seem to be helping. 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 Related Data Home Medications Medication Instructions Recorded Confirmed butalbital 50 mg-acetaminophen 325 2 tab PO Q8HR PRN 12/20/19 12/20/19 mg tablet chlorthalidone 25 mg tablet 25 mg PO QAM 12/20/19 12/20/19 losartan 50 mg tablet 50 mg PO QAM 12/20/19 12/20/19 multivitamin 1 tab PO QAM 12/20/19 12/20/19 omeprazole 20 mg tablet,delayed 20 mg PO QAM 12/20/19 12/20/19 release Previous Rx's Medication Instructions Recorded metoclopramide HCl 10 mg tablet 10 mg PO Q6H PRN #10 tab 05/24/20 (Reglan) losartan 50 mg tablet 50 mg PO DAILY #30 tab 04/01/21 Allergies Allergy/AdvReac Type Severity Reaction Status Date / Time No Known Drug Allergies Allergy Verified 05/24/20 13:57 Review of Systems Review of Systems Narrative: GENERAL: Denies chills, fatigue, malaise, fever, sweats, travel HEENT: Denies sinus pain, ear pain, sore throat, difficulty swallowing, neck pain RESPIRATORY: Denies dyspnea, cough, wheezing, hemoptysis, sputum. CARDIOVASCULAR:see HPI GASTROINTESTINAL:see HPI : Denies dysuria, frequency, incontinence, hematuria, urinary retention, flank pain. MUSCULOSKELETAL: Denies weakness, joint pain, or bony pain SKIN: No rash, no erythema, no pruritus NEUROLOGIC: +headache Denies weakness, dizziness, numbness, change in speech, confusion PSYCHIATRIC: No concerning psychosocial issues. 12 point review of systems is negative except for those stated above and HPI Patient History Medical History GERD (gastroesophageal reflux disease) Hypertension Migraine Social History Smoking Status: Never smoker Smoking Status: Never smoker alcohol intake frequency: other Substance Use Type: does not use Exam Initial Vital Signs Initial Vital Signs: Vital Signs Pulse Oximetry 99 04/01/21 11:02 GENERAL: Alert well-appearing 45 year old female no acute distress HEENT: Head atraumatic,EOMI, pupils reactive, face symmetric, moist mucous membranes CARDIOVASCULAR: Regular rate and rhythm without murmurs, rubs or gallops. RESPIRATORY: Breath sounds equal bilaterally, no wheezes rales or rhonchi. ABDOMEN: Soft, mild left lower quadrant tenderness no guarding or rebound EXTREMITIES: Normal range of motion, no clubbing or edema. Neurovascularly intact NEUROLOGICAL: Alert and oriented x4.Normal gait and speech. Cranial nerves II through XII grossly intact. 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 Scores HEART Score Heart Score history: Moderately Suspicious Heart Score EKG: Normal Heart Score Age: 45-64 years old Heart Score risk factors: 1-2 risk factors Heart Score troponin: < or = to normal limit Heart Score Total: 3 Course Orders Ordered: Discontinued Medications Aspirin (Aspirin 81 Mg Chew Tab) 324 mg PO NOW ONE Stop: 04/01/21 12:07 Last Admin: 04/01/21 12:18 Dose: 324 mg Documented by: BTONER Sodium Chloride (Normal Saline 0.9%) 1,000 mls @ 1,000 mls/hr IV BOLUS ONE Stop: 04/01/21 13:05 Last Infusion: 04/01/21 13:45 Dose: 0 mls/hr Documented by: Admin: 04/01/21 12:17 Dose: 1,000 mls/hr Documented by: ALEXANDER Ketorolac Tromethamine (Ketorolac 30 Mg/Ml Vial) 15 mg IV NOW ONE Stop: 04/01/21 12:07 Last Admin: 04/01/21 12:17 Dose: 15 mg Documented by: ALEXANDER Losartan Potassium (Losartan 50 Mg Tablet) 50 mg PO NOW ONE Stop: 04/01/21 13:42 Last Admin: 04/01/21 14:03 Dose: 50 mg Documented by: NIKOS Vital Signs Vital signs: Vital Signs - 8 hr 04/01/21 11:02 04/01/21 11:07 04/01/21 11:24 Temperature 98.1 F Pulse Rate 69 65 Respiratory Rate 17 16 Blood Pressure 163/87 H 163/87 H Pulse Oximetry 99 100 99 04/01/21 11:30 04/01/21 12:00 04/01/21 12:01 Temperature Pulse Rate 65 69 72 Respiratory Rate 27 H 21 28 H Blood Pressure 159/88 H 176/99 H Pulse Oximetry 99 99 99 04/01/21 12:30 04/01/21 12:31 04/01/21 13:03 Temperature Pulse Rate 60 63 67 Respiratory Rate 23 22 Blood Pressure 152/91 H Pulse Oximetry 99 100 99 04/01/21 13:30 04/01/21 14:00 04/01/21 14:03 Temperature Pulse Rate 58 L 60 62 Respiratory Rate 21 15 Blood Pressure 161/88 H 159/86 H 159/86 H Pulse Oximetry 100 100 04/01/21 14:30 04/01/21 15:00 Temperature Pulse Rate 56 L 59 L Respiratory Rate 19 18 Blood Pressure 162/86 H 158/90 H Pulse Oximetry 99 99 MDM - Chest Pain Lab Data Result diagrams: 04/01/21 11:20 04/01/21 11:20 Labs: Lab Results 04/01/21 04/01/21 04/01/21 Range/Units 11:20 11:20 11:20 WBC 9.1 (4.5-11.0) X10^3/uL RBC 4.33 (4.0-5.2) X10^6/uL Hgb 13.3 (12.0-16.0) g/dL Hct 39.9 (36-46) % MCV 92.1 (80-100) fL MCH 30.7 (26-34) PG MCHC 33.4 (30-36) % RDW 12.7 (11.6-14.8) % Plt Count 253 (150-400) X10^3/uL Neut % (Auto) 64.0 (50-75) % Lymph % (Auto) 31.0 (25-40) % [place] % (Auto) 3.9 (3-14) % Eos % (Auto) 0.8 L (2-4) % Baso % (Auto) 0.3 (0-2) % Neut # (Auto) 5800 (7646-4700) /uL Lymph # (Auto) 2800 (2483-9212) /uL [place] # (Auto) 400 (0-900) /uL Eos # (Auto) 100 (0-450) /uL Baso # (Auto) 0 (0-100) /uL D-Dimer (<230) ng/mL Sodium 138 (137-145) mmol/L Potassium 3.8 (3.4-5.1) mmol/L Chloride 104 (98-107) mmol/L Carbon Dioxide 27 (22-32) mmol/L BUN 8 (7-17) mg/dL Creatinine 0.86 (0.52-1.04) mg/dL Estimated GFR > 60.0 (>60) mL/min BUN/Creatinine Ratio 9.3 (6-22) Glucose 96 (70-100) mg/dL Calcium 9.4 (8.4-10.2) mg/dL Total Bilirubin 0.7 (0.2-1.3) mg/dL AST 20 (14-36) IU/L ALT 10 (<35) IU/L Alkaline Phosphatase 93 (38-126) U/L Total Creatine Kinase 55 (30-135) U/L CK-MB (CK-2) TNP CK-MB (CK-2) Rel Index TNP Troponin I < 0.012 (0.01-0.034) ng/mL Total Protein 7.7 (6.3-8.2) g/dL Albumin 4.4 (3.5-5.0) g/dL Globulin 3.3 (1.7-4.1) g/dL Albumin/Globulin Ratio 1.3 (1.0-2.8) Lipase 67 (23-300) U/L SARS-CoV-2 (PCR) Negative (Negative) 04/01/21 04/01/21 Range/Units 11:20 13:39 WBC (4.5-11.0) X10^3/uL RBC (4.0-5.2) X10^6/uL Hgb (12.0-16.0) g/dL Hct (36-46) % MCV (80-100) fL MCH (26-34) PG MCHC (30-36) % RDW (11.6-14.8) % Plt Count (150-400) X10^3/uL Neut % (Auto) (50-75) % Lymph % (Auto) (25-40) % [place] % (Auto) (3-14) % Eos % (Auto) (2-4) % Baso % (Auto) (0-2) % Neut # (Auto) (6706-9017) /uL Lymph # (Auto) (6386-3540) /uL [place] # (Auto) (0-900) /uL Eos # (Auto) (0-450) /uL Baso # (Auto) (0-100) /uL D-Dimer < 200 (<230) ng/mL Sodium (137-145) mmol/L Potassium (3.4-5.1) mmol/L Chloride (98-107) mmol/L Carbon Dioxide (22-32) mmol/L BUN (7-17) mg/dL Creatinine (0.52-1.04) mg/dL Estimated GFR (>60) mL/min BUN/Creatinine Ratio (6-22) Glucose (70-100) mg/dL Calcium (8.4-10.2) mg/dL Total Bilirubin (0.2-1.3) mg/dL AST (14-36) IU/L ALT (<35) IU/L Alkaline Phosphatase (38-126) U/L Total Creatine Kinase (30-135) U/L CK-MB (CK-2) CK-MB (CK-2) Rel Index Troponin I < 0.012 (0.01-0.034) ng/mL Total Protein (6.3-8.2) g/dL Albumin (3.5-5.0) g/dL Globulin (1.7-4.1) g/dL Albumin/Globulin Ratio (1.0-2.8) Lipase (23-300) U/L SARS-CoV-2 (PCR) (Negative) Point of Care Testing Test Results Negative Urine Dip Bedside Urine Glucose Negative Bedside Urine Bilirubin - Negative Bedside Urine Ketone - Negative Urine Specific [place] 1.020 Bedside Urine Occult Blood +/- Bedside Urine pH 6.0 Bedside Urine Protein - Negative Bedside Urine Urobilinogen - Negative Bedside Urine Nitrite - Negative Bedside Urine Leukocytes - Negative Esterase Imaging Data CT scan - abdomen/pelvis: Radiologist's Impression: PROCEDURE:? CT ABDOMEN PELVIS W CON ? INDICATIONS:? llq pain ? TECHNIQUE:? After the administration of intravenous contrast, axial sections acquired from the lung bases to the pubic symphysis.? Coronal and sagittal reformats were performed.? For radiation dose reduction, the following was used:? automated exposure control, adjustment of mA and/or kV according to patient size.? ? COMPARISON:? None. ? FINDINGS:? Image quality:? Excellent.? ? Lung bases:? Unremarkable. Heart:? No significant findings. ? ABDOMEN: Liver:? Uniform hepatic parenchymal attenuation. Gallbladder:? Normally distended gallbladder with no wall thickening or pericholecystic fluid.. Biliary ducts:? No intrahepatic or extrahepatic biliary ductal dilatation. Pancreas:? Normal. Spleen:? Unremarkable.? ? Adrenal Glands:? No adrenal gland nodule or mass. Kidneys and Ureters:? No hydronephrosis, hydroureter, or perinephric fat stranding.? No urinary tract calculus.? Symmetric normal nephrograms. Stomach and Bowel:? No abnormally dilated or thickened loop of bowel.? Normal appendix.? Extensive diverticulosis in the distal descending colon and sigmoid colon.? Some fat stranding surrounding the sigmoid colon in the region of the left adnexa (series 2 image [id number]), potentially indicative of early/mild diverticulitis.? No free fluid or free air. Abdominal Nodes:? No retroperitoneal or mesenteric adenopathy by size criteria.? Vessels:? Aorta and inferior vena cava are normal in size.? ? PELVIS: Pelvic Organs:? Urinary bladder, uterus, and ovaries are normal..? ? Bladder:? Unremarkable.? ? Pelvic Nodes: No enlarged lymph nodes.? Miscellaneous: No hernias are seen. ? ? ? Bones:? Unremarkable.? IMPRESSION:? Extensive colonic diverticulosis with subtle fat stranding left hemipelvis adjacent to the sigmoid colon representing possible early/mild diverticulitis.? Otherwise unremarkable study.? ? Dictated by: Venkat Mejia M.D. on 04/01/2021 at 13:02 CT scan - head: Radiologist's Impression: PROCEDURE:? CT HEAD/BRAIN WO CON ? INDICATIONS:? abnormal migraine left sided ? TECHNIQUE:? Noncontrast 4.5 mm thick angled axial sections acquired from the foramen magnum to the vertex, with coronal and sagittal reformats.? For radiation dose reduction, the following was used:? automated exposure control, adjustment of mA and/or kV according to patient size.? ? COMPARISON:? [facility], CT, CT HEAD/BRAIN WO CON, 05/24/2020, 14:06. ? FINDINGS:? Image quality:? Excellent.? ? CSF spaces:? Basal cisterns are patent.? No extra-axial fluid collections.? Ventricles are normal in size and shape.? ? Brain:? No midline shift.? No intracranial masses or hemorrhage.? Smith-white matter interface is normal.? ? Skull and face:? Calvarium and visualized facial bones are intact, without suspicious lesions.? ? Sinuses:? Visualized sinuses and mastoids are clear.? ? IMPRESSION:? No acute intracranial abnormality. ? ? Dictated by: Jacoby Watts M.D. on 04/01/2021 at 15:31 ? ? Approved by: Jacoby Watts M.D. on 04/01/2021 at 15:33 ? ECG Data Interpretation: Normal sinus Rhythm rate 71 VA interval 146 QRS [address] changes no T-wave inversions similar to previous EKG in in May 2019 MDM Narrative Medical decision making narrative: Patient has had ongoing chest discomfort her a few days negative troponin, no EKG changes and a low risk heart score. She apparently has been out of blood pressure medication for at least 1 month. This may be contributing to both headache and chest discomfort. Will restart her on blood pressure medications see if helps to improve things. At this time I do recommend that she have outpatient workup. He is having some diarrhea and lower abdominal discomfort but CT does show possible early diverticulitis. However no leukocytosis at this time. Would wait on antibiotic, discussed this with patient. Discharge Plan Departure Patient Disposition: Home Clinical Impression: Atypical chest pain, Migraine, Hypertension Instructions: DI for Atypical Chest Pain Activity Restrictions/Additional Instructions: *You have been diagnosed with hypertension, migraine *What to do: you will need to follow up with PCP for further cardiac testing, possibly neurology for on going headaches as well. *Continue to take medications as directed Losartan 50mg once daily *Follow up with your primary care provider in 2-3 days or call [phone] *Return to ER if you should have increasing chest pain, headaches, weakness or any new, worsening or concerning symptoms Prescriptions: New losartan 50 mg tablet 50 mg PO DAILY Qty: 30 0RF No Action multivitamin Tablet 1 tab PO QAM 0RF losartan 50 mg Tablet 50 mg PO QAM 0RF Rx Instructions: new to patient 12/14 butalbital-acetaminophen 50-325 mg Tablet 2 tab PO Q8HR PRN (Reason: Migraine Headache) 0RF chlorthalidone 25 mg Tablet 25 mg PO QAM 0RF omeprazole 20 mg Tablet,Delayed Release (Dr/Ec) 20 mg PO QAM 0RF metoclopramide HCl [Reglan] 10 mg tablet 10 mg PO Q6H PRN (Reason: nausea and vomiting) Qty: 10 0RF
[2021-04-01 12:08] LABS: Alanine Aminotransferase 10 IU/L (<35); Albumin 4.4 g/dL (3.5-5.0); Albumin Globulin Ratio 1.3 (1.0-2.8); Alkaline Phosphatase 93 U/L (38-126); Aspartate Aminotransferase 20 IU/L (14-36); BUN Creatinine Ratio 9.3 (6-22); Bilirubin Total 0.7 mg/dL (0.2-1.3); Blood Urea Nitrogen 8 mg/dL (7-17); Calcium 9.4 mg/dL (8.4-10.2); Carbon Dioxide 27 mmol/L (22-32); Chloride 104 mmol/L (98-107); Creatine Kinase 55 U/L (30-135); Estimated Glomerular Filt Rate > 60.0 mL/min (>60); Globulin 3.3 g/dL (1.7-4.1); Glucose 96 mg/dL (70-100); HEMOLYSIS < 15 (0-50); Lipase 67 U/L (23-300); Potassium 3.8 mmol/L (3.4-5.1); Sodium 138 mmol/L (137-145); Total Protein 7.7 g/dL (6.3-8.2)
[2021-04-01] MEDS: SODIUM CHLORIDE 0.9% 1,000 ML 1000 ML IV (12:17)
[2021-04-01] MEDS: KETOROLAC 30 MG/ML VIAL 15 MG IV (12:17)
[2021-04-01] MEDS: ASPIRIN 81 MG CHEW TAB 324 MG PO (12:18)
[2021-04-01 12:19] LABS: Troponin I < 0.012 ng/mL (0.01-0.034)
[2021-04-01 12:21] LABS: D Dimer < 200 ng/mL (<230)
--- NOTE | 2021-04-01 12:32 | DI.CT.S_ITS ---
PROCEDURE: CT ABDOMEN PELVIS W CON INDICATIONS: llq pain TECHNIQUE: After the administration of intravenous contrast, axial sections acquired from the lung bases to the pubic symphysis. Coronal and sagittal reformats were performed. For radiation dose reduction, the following was used: automated exposure control, adjustment of mA and/or kV according to patient size. COMPARISON: None. FINDINGS: Image quality: Excellent. Lung bases: Unremarkable. Heart: No significant findings. ABDOMEN: Liver: Uniform hepatic parenchymal attenuation. Gallbladder: Normally distended gallbladder with no wall thickening or pericholecystic fluid.. Biliary ducts: No intrahepatic or extrahepatic biliary ductal dilatation. Pancreas: Normal. Spleen: Unremarkable. Adrenal Glands: No adrenal gland nodule or mass. Kidneys and Ureters: No hydronephrosis, hydroureter, or perinephric fat stranding. No urinary tract calculus. Symmetric normal nephrograms. Stomach and Bowel: No abnormally dilated or thickened loop of bowel. Normal appendix. Extensive diverticulosis in the distal descending colon and sigmoid colon. Some fat stranding surrounding the sigmoid colon in the region of the left adnexa (series 2 image [id number]), potentially indicative of early/mild diverticulitis. No free fluid or free air. Abdominal Nodes: No retroperitoneal or mesenteric adenopathy by size criteria. Vessels: Aorta and inferior vena cava are normal in size. PELVIS: Pelvic Organs: Urinary bladder, uterus, and ovaries are normal.. Bladder: Unremarkable. Pelvic Nodes: No enlarged lymph nodes. Miscellaneous: No hernias are seen. Bones: Unremarkable. IMPRESSION: Extensive colonic diverticulosis with subtle fat stranding left hemipelvis adjacent to the sigmoid colon representing possible early/mild diverticulitis. Otherwise unremarkable study. Dictated by: Venkat Mejia M.D. on 04/01/2021 at 13:02 Approved by: Venkat Mejia M.D. on 04/01/2021 at 13:06
[2021-04-01] MEDS: LOSARTAN 50 MG TABLET PO (14:03)
[2021-04-01 14:13] LABS: Troponin I < 0.012 ng/mL (0.01-0.034)
--- NOTE | 2021-04-01 15:19 | DI.CT.S_ITS ---
PROCEDURE: CT HEAD/BRAIN WO CON INDICATIONS: abnormal migraine left sided TECHNIQUE: Noncontrast 4.5 mm thick angled axial sections acquired from the foramen magnum to the vertex, with coronal and sagittal reformats. For radiation dose reduction, the following was used: automated exposure control, adjustment of mA and/or kV according to patient size. COMPARISON: [facility], CT, CT HEAD/BRAIN WO CON, 05/24/2020, 14:06. FINDINGS: Image quality: Excellent. CSF spaces: Basal cisterns are patent. No extra-axial fluid collections. Ventricles are normal in size and shape. Brain: No midline shift. No intracranial masses or hemorrhage. Smith-white matter interface is normal. Skull and face: Calvarium and visualized facial bones are intact, without suspicious lesions. Sinuses: Visualized sinuses and mastoids are clear. IMPRESSION: No acute intracranial abnormality. Dictated by: Jacoby Watts M.D. on 04/01/2021 at 15:31 Approved by: Jacoby Watts M.D. on 04/01/2021 at 15:33
== END 2021-04-01 16:15 | disposition home or self-care (01) ==
PROVIDERS: Emergency Provider Emergency Medicine
DX: R07.89 Other chest pain (principal); R10.32 Left lower quadrant pain; G43.909 Migraine, unspecified, not intractable, without status migrainosus; I10 Essential (primary) hypertension; Z20.822 Contact with and (suspected) exposure to COVID-19
CPT/HCPCS: 36415; 70450; 71045; 74177; 80053; 81003; 81025; 82550; 83690; 84484; 85025; 85379; 87635; 93005; 96361; 96374; 99284; C9803; J1885

== ENCOUNTER → 2022-01-01 17:10 | Outpatient (CLI) | payer OTHER, SELFPAY ==
[2022-01-01 18:12] LABS: COVID19 -Nasal RAPID Negative (Negative)
== END ==
PROVIDERS: Radiology Diagnostic Radiology; Referring Provider Internal Medicine Cardiovascular Disease; Visit Provider Internal Medicine Cardiovascular Disease
DX: Z20.822 Contact with and (suspected) exposure to COVID-19 (principal)
CPT/HCPCS: 87635; C9803

== ENCOUNTER → 2022-01-02 08:15 | Outpatient (CLI) | payer OTHER, SELFPAY ==
--- NOTE | 2022-01-02 | DI.NM.S_ITS ---
PROCEDURE: NM EXERCISE TREADMILL NON NUC COMPARISON: None. INDICATIONS: Precordial pain FINDINGS: Rest ECG sinus rhythm. Jon protocol 9:02, maximum heart rate 163 bpm (94% peak predicted), maximum blood pressure 182/100, 10.1 METS, JOSE CRUZ -9%. Stress ECG sinus tachycardia, no ST segment changes or ectopy. Brief episode of atrial tachycardia 5 beats early in recovery. Patient did not report exercise-induced chest pain. IMPRESSION: Low risk study. No evidence of exercise-induced ischemia. Very brief episode of atrial tachycardia in early recovery. Normal hemodynamic response to exercise. Good exercise capacity. Dictated by: Linda Blancas D.O. on 01/02/2022 at 16:57 Approved by: Linda Blancas D.O. on 01/02/2022 at 17:02
--- NOTE | 2022-01-02 | DI.ECHO.S_ITS ---
[facility]---------[facility] +---------+ : : [address] [place] [address] : : : : [id number] : : : : Phone: [phone] Echocardiogram Report + + :Name: EDGARDO FINCH Study Date: 01/02/2022 Height: 67 in : :[facility] ReadingLocation: Weight: 218 lb : : Gender: Female BSA: 2.1 m2 : :: 1975 Age: 46 yrs BP: 129/85 mmHg: :Reason For Study: PRECORDIAL PAIN : :Ordering Physician: URIEL, : :ISMA Performed By: Alicia Chavez : :Referring: ISMA PATRICIA : + + Interpretation Summary 1) Normal left ventricular size, thickness, wall motion, and systolic function (EF 55-60%). 2) Normal right ventricular size and function. 3) No significant valvular abnormalities. 4) No prior Echo available for comparison. Procedure: A two-dimensional transthoracic echocardiogram with color flow and Doppler was performed. The study quality was technically adequate. There is no prior echocardiogram noted for this patient. The patient was in sinus rhythm with heart rates between 64-71 bpm during the exam. Left Ventricle: The left ventricle is normal in size and wall thickness. The ejection fraction is estimated to be 55-60%. Left ventricular systolic function appears normal without focal wall motion abnormalities. Right Ventricle: The right ventricle is normal in size and function. Atria: The left atrium is mildly dilated. Right atrial size is normal. There is no Doppler evidence for an interatrial shunt. Mitral Valve: The mitral valve is normal in structure and function. There is mild mitral regurgitation. Aortic Valve: The aortic valve is trileaflet. The aortic valve opens well. There is no aortic valve stenosis. No aortic regurgitation is present. Tricuspid Valve: The tricuspid valve is normal in structure and function. There is trace tricuspid regurgitation. Pulmonary artery pressures cannot be estimated because of the lack of a measurable TR jet velocity. Pulmonic Valve: The pulmonic valve leaflets are thin and pliable; valve motion is normal. There is trace pulmonic regurgitation. Great Vessels: The aortic root is normal size. The dimensions of the ascending aorta are normal. The IVC is of normal diameter and collapses greater than 50% with a sniff. This suggests a low right atrial pressure of 3 mm Hg. Pericardium/ Pleura There is no pericardial effusion. There is no pleural effusion. MMode/2D Measurements & Calculations LVIDd: 5.1 cm LVOT diam: 2.1 cm LVIDs: 3.3 cm Ao root diam: 3.3 cm FS: 36.6 % asc Aorta Diam: 3.4 cm EPSS: 0.76 cm Ao Arch Diam (Prox Trans): 3.1 cm IVSd: 0.84 cm LVPWd: 0.94 cm LV vargas. diameter/BSA (cm/m^2): 2.4 LV sys. diameter/BSA (cm/m^2): 1.6 LA A2 area: 23.4 cm2 RA long axis: 5.0 cm LA A4 area: 21.1 cm2 RA area: 16.1 cm2 LA length (vol): 5.9 cm RA vol: 43.7 ml LA vol: 71.0 ml RA : 20.8 ml/m2 LA vol index: 33.9 ml/m2 IVC diam: 1.7 cm RVD1 (basal): 3.8 cm RVD2 (mid): 2.6 cm TAPSE: 2.3 cm Doppler Measurements & Calculations Ao V2 max: 154.8 cm/sec LVOT Max Joe: 130.2 cm/sec Ao V2 mean: 107.1 cm/sec LV V1 max P.8 mmHg Ao max P.6 mmHg LV V1 VTI: 27.1 cm Ao mean P.1 mmHg CHRISTINE(I,D): 2.9 cm2 Ao V2 VTI: 31.8 cm CHRISTINE(V,D): 2.8 cm2 sev ratio: 0.85 CHRISTINE indexed to BSA (cm^2/m^2): 1.4 MV E max joe: 72.4 cm/sec PA V2 max: 100.1 cm/sec MV A max joe: 72.8 cm/sec PA V2 mean: 64.7 cm/sec MV E/A: 0.99 PA mean P.9 mmHg Med Peak E' Joe: 7.0 cm/sec PA pr(Accel): 41.3 mmHg E/E' med: 10.3 Lat Peak E' Joe: 8.7 cm/sec E/E' lat: 8.4 E/e' average: 9.3 MV dec time: 0.27 sec SV(LVOT): 91.9 ml Reading Physician:07:33 PM
== END ==
PROVIDERS: Family Provider Internal Medicine Cardiovascular Disease; Referring Provider Internal Medicine Cardiovascular Disease; Visit Provider Internal Medicine Cardiovascular Disease
DX: I34.0 Nonrheumatic mitral (valve) insufficiency (principal); R07.2 Precordial pain; R06.02 Shortness of breath
CPT/HCPCS: 93017; 93306

== ENCOUNTER → 2024-03-22 17:47 | Outpatient (CLI) | payer OTHER, SELFPAY ==
--- NOTE | 2024-03-22 17:49 | DI.RAD.S_ITS ---
PROCEDURE: XR KNEE RT 3V INDICATIONS: Right medial knee pain swelling following hyperextension TECHNIQUE: 3 views of the knee were acquired. COMPARISON: None. FINDINGS: Bones: No fractures or dislocations. No suspicious bony lesions. Soft tissues: No joint effusion. No suspicious soft tissue calcifications. IMPRESSION: No acute bony abnormality or significant effusion. Dictated by: Stuart Traore M.D. on 03/22/2024 at 19:21 Approved by: Stuart Traore M.D. on 03/22/2024 at 19:21
== END ==
LOC: RAD 17:48
PROVIDERS: Family Provider Internal Medicine Cardiovascular Disease; Referring Provider Physician Assistant Medical; Visit Provider Physician Assistant Medical
DX: S89.91XA Unspecified injury of right lower leg, initial encounter (principal); X58.XXXA Exposure to other specified factors, initial encounter
CPT/HCPCS: 73562